=== PATIENT | male | born 1940 | race Two or more races ===

== ENCOUNTER 2018-06-23 17:18 | Emergency (ER) | payer MEDICARE ==
[~2018-06-23] VITALS: Ht 175.3 cm; Wt 102.1 kg
[2018-06-23 17:30] VITALS: BP 156/82
[2018-06-23] MEDS ORDERED: Meclizine 25mg tab ORAL ONE (17:45)
[2018-06-23] MEDS ORDERED: Metoclopramide 10mg/2ml Inj IVP ONE (17:45)
[2018-06-23 18:00] VITALS: BP 140/83
[2018-06-23 18:08] LABS: BASOPHILS % (AUTO) 1.7 % (0.0-2.0); HEMATOCRIT 45.3 % (42.0-52.0); HEMOGLOBIN 15.5 G/DL (14.2-18.0); LYMPHOCYTES % (AUTO) 41.8 % (20.0-45.0); MEAN CORPUSCULAR VOLUME 88 FL (80-99); MONOCYTES % (AUTO) 7.4 % (1.0-10.0); NEUTROPHILS % (AUTO) 43.3 % (45.0-75.0); PLATELET COUNT 164 K/UL (150-450); RED BLOOD COUNT 5.17 M/UL (4.70-6.10); RED CELL DISTRIBUTION WIDTH 11.6 % (11.6-14.8); WHITE BLOOD COUNT 9.2 K/UL (4.8-10.8)
--- NOTE | 2018-06-23 18:12 | Emergency Room Report ---
History of Present Illness General Chief Complaint: Vomiting Source: Patient, EMS Present Illness HPI Patient is a 78-year-old male brought in by EMS after acute onset of dizziness. Patient was noted to have acute onset of vertigo sensation associated with nausea and vomiting. Patient was noted to have multiple episodes of vomiting. This had sudden onset approximately 45 minutes prior to arrival. Patient had had a prior history of vertigo. He had prior history of hypertension.The patient noted have prior history of atrial fibrillation and been taking Elliquis 5 mg. The patient brought in by EMS. He had been given Zofran IV Allergies: Coded Allergies: PENICILLINS (Verified Allergy, Unknown, 06/23/18) Patient History Reviewed Nursing Documentation: PMH: Agreed; PSxH: Agreed Nursing Documentation-PMH Past Medical History: No History, Except For Hx Hypertension: Yes Review of Systems All Other Systems: limited Physical Exam Vital Signs Date Time Temp Pulse Resp B/P (MAP) Pulse Ox O2 Delivery O2 Flow Rate FiO2 06/23/18 17:17 97.5 78 19 178/96 99 Room Air 97.5 Sp02 EP Interpretation: reviewed, normal General Appearance: normal inspection, well appearing, no apparent distress, alert, GCS 15, non-toxic Head: atraumatic ENT: normal ENT inspection, hearing grossly normal, normal voice Neck: normal inspection, full range of motion, supple, no bony tend Respiratory: normal inspection, lungs clear, normal breath sounds, no respiratory distress, no retraction, no wheezing Cardiovascular #1: regular rate, rhythm, no edema Gastrointestinal: normal inspection, normal bowel sounds, non tender, soft, no guarding, no hernia Genitourinary: no CVA tenderness Musculoskeletal: normal inspection, back normal, normal range of motion Neurologic: normal inspection, alert, oriented x3, responsive, speech normal, other - roving eye movemetn disconjugate gaze pupils 2mm reactive Psychiatric: normal inspection, judgement/insight normal, mood/affect normal Skin: normal inspection, normal color, no rash Medical Decision Making Diagnostic Impression: Primary Impression: Cerebellar hemorrhage, nontraumatic ER Course Patient presented for acute onset of dizziness. Differential diagnosis included was not limited to subarachnoid hemorrhage, cerebellar stroke, benign positional vertigo among others.Because of complexity of patient's case laboratory testing and imaging studies were ordered. The patient was noted to have a acute onset of severe vertigo. The patient noted have a markedly abnormal eye movements. Patient was given IV Zofran by EMS and was given IV Reglan while in the emergency department. CT the head read by radiologist showed 2.8 x 2 cm cerebellar parenchymal hemorrhage with small mass effect on the fourth ventricle without evidence hydrocephalus.The patient given IV Decadron as well as loaded with IV Keppra. The [facility] was contacted for possible transfer. The patient was discussed with at [facility] for a transfer for higher level of care. The reversal agent for Elliquis was unavailable. The patient be transferred [facility] for higher level of care via 911 Labs Test 06/23/18 17:34 White Blood Count 9.2 K/UL (4.8-10.8) Red Blood Count 5.17 M/UL (4.70-6.10) Hemoglobin 15.5 G/DL (14.2-18.0) Hematocrit 45.3 % (42.0-52.0) Mean Corpuscular Volume 88 FL (80-99) Mean Corpuscular Hemoglobin 30.0 PG (27.0-31.0) Mean Corpuscular Hemoglobin Concent 34.2 G/DL (32.0-36.0) Red Cell Distribution Width 11.6 % (11.6-14.8) Platelet Count 164 K/UL (150-450) Mean Platelet Volume 8.7 FL (6.5-10.1) Neutrophils (%) (Auto) 43.3 % (45.0-75.0) Lymphocytes (%) (Auto) 41.8 % (20.0-45.0) Monocytes (%) (Auto) 7.4 % (1.0-10.0) Eosinophils (%) (Auto) 6.0 % (0.0-3.0) Basophils (%) (Auto) 1.7 % (0.0-2.0) Last Vital Signs Date Time Temp Pulse Resp B/P (MAP) Pulse Ox O2 Delivery O2 Flow Rate FiO2 06/23/18 17:30 63 16 156/82 97 Room Air 06/23/18 17:17 97.5 97.5 Status: unchanged Disposition: XFER SHT-TRM HOSP Condition: Critical Alden Veras MD Jun 23, 2018 18:12
[2018-06-23] MEDS ORDERED: Dexamethasone 4mg/ml vial IVP ONE (18:15)
[2018-06-23] MEDS ORDERED: levETIRAcetam 1,000mg/NS100ml 100 ML IVPB ONE (18:15)
--- NOTE | 2018-06-23 18:19 | Diagnostic Imaging Report ---
Indication: Headache and dizziness Technique: Contiguous 5 mm thick transaxial imaging of the head obtained in a Siemens Sensation [address] scanner. Soft tissue and bone windows generated. Automatic Exposure Control was utilized. Total Dose length Product (DLP): [address] Dose Index Volume (CTDIvol): 0.15, 70.38 mGy Comparison: none Findings: There is a round, hyperdense acute hematoma demonstrated within the cerebellar vermis slightly left of midline measuring 2.8 x 1.9 x 2.5 cm. Very small amount of surrounding adjacent low attenuation edema noted. Mild compression of the fourth ventricle demonstrated. Basal cisterns appear normal. There is no evidence of hydrocephalus with normal caliber lateral ventricles and third ventricle. There is generalized atrophy of the cerebrum and cerebellum, mild to in degree. Nonspecific periventricular low-attenuation noted likely chronic small vessel disease given patient's age. Osseous structures appear unremarkable. Paranasal sinuses are clear as visualized. IMPRESSION: 2.8 x 1.9 x 2.5 cm acute hematoma in the area of the cerebellar vermis. Mild surrounding edema. Mild mass effect on the fourth ventricle. Mild generalized atrophy of the brain. Periventricular low attenuation consistent with chronic small vessel disease Critical value communication. Findings were discussed via telephone with Dr. Alden Veras in the emergency department 6:10 PM, 06/23/2018. The CT scanner at [facility] is accredited by the [employer] and the scans are performed using dose optimization techniques as appropriate to a performed exam including Automatic Exposure control.
[2018-06-23 18:20] LABS: ANION GAP 9 mmol/L (5-15); BLOOD UREA NITROGEN 15 mg/dL (7-18); CALCIUM 10.1 MG/DL (8.5-10.1); CARBON DIOXIDE 24 MMOL/L (21-32); CHLORIDE 108 MMOL/L (98-107); POTASSIUM 4.5 MMOL/L (3.5-5.1); SODIUM 141 MMOL/L (136-145)
[2018-06-23 18:25] LABS: ALANINE AMINOTRANSFERASE 26 U/L (12-78); ALBUMIN 3.9 G/DL (3.4-5.0); ALBUMIN/GLOBULIN RATIO 1.1 (1.0-2.7); ALKALINE PHOSPHATASE 112 U/L (46-116); ASPARTATE AMINO TRANSFERASE 29 U/L (15-37); BILIRUBIN,TOTAL 0.4 MG/DL (0.2-1.0)
[2018-06-23 18:47] VITALS: BP 140/83
[2018-06-23 19:00] VITALS: BP 146/97
== END 2018-06-23 19:00 | disposition short-term general hospital (02) ==
LOC: EDBD 17:18 → EMR 18:26
DX: I61.4 Nontraumatic intracerebral hemorrhage in cerebellum (principal); I10 Essential (primary) hypertension
CPT/HCPCS: 36415; 70450; 80053; 82962; 84484; 85025; 85610; 85651; 85730; 96374; 96375; 99285; J0360; J1100; J1953; J2765

== ENCOUNTER 2020-07-17 20:34 | Emergency (ER) | payer MEDICARE, MEDICAID ==
[~2020-07-17] VITALS: Ht 175.3 cm; Wt 86.2 kg
--- NOTE | 2020-07-17 20:40 | NUR ---
ED Nurse Note: Patient walked into the ED from home accompanied by son due to mechanial fall at home. Patient lost balance while walking in the backyard using a cane causing him to fall forward hitting his head on a concrete. Laceration noted on right eyebrow area. Minimal bleeding noted at as pressure was applied by son. Patient is on blood thinner (aspirin). Patient denies LOC, N&V, changes in GCS, CP/SOB/. Patient is AAOX4 and was placed on monitor bed
--- NOTE | 2020-07-17 20:41 | NUR ---
ED Nurse Note: ERMD at bedside
--- NOTE | 2020-07-17 20:45 | NUR ---
ED Nurse Note: Blood sent to lab
[2020-07-17] MEDS ORDERED: Lidocaine 2% MPF 5ml Vial INJ ONE (21:15)
--- NOTE | 2020-07-17 21:15 | NUR ---
ED Nurse Note: CT scan done
--- NOTE | 2020-07-17 21:19 | Emergency Room Report ---
History of Present Illness General Chief Complaint: Multiple Trauma/Fall Source: Patient Present Illness HPI This patient is accompanied by his son. The patient was out in the yard and was bent over and lost his balance and fell onto his face suffering a laceration on his right forehead. He normally uses a walker and is unstable. He has a history of recurrent falls. He also has had intracranial bleeding after being on anticoagulation medications for A. fib. He is no longer on any anticoagulation. He is on a 325 mg aspirin daily. The patient has had no recent illness. The patient did not have any loss of consciousness. There are no other complaints. Allergies: Coded Allergies: No Known Allergies (Unverified , 07/17/20) COVID-19 Screening Contact w/high risk pt: No Experienced COVID-19 symptoms?: No COVID-19 Testing performed MANAGER ERP: No Patient History Past Medical History: see triage record, HTN, CO, CAD, CHF, AFib Past Surgical History: CABG Social History: Denies: smoking, alcohol use, drug use Reviewed Nursing Documentation: PMH: Agreed; PSxH: Agreed Nursing Documentation-PMH Past Medical History: No History, Except For Hx Hypertension: Yes Review of Systems All Other Systems: negative except mentioned in HPI Physical Exam Vital Signs Date Time Temp Pulse Resp B/P (MAP) Pulse Ox O2 Delivery O2 Flow Rate FiO2 07/17/20 20:37 98.2 60 16 136/74 (94) 95 Room Air Sp02 EP Interpretation: reviewed, normal General Appearance: no apparent distress, alert, GCS 15, non-toxic Head: normocephalic, other - 2cm laceration over the L. eyebrow and forehead. Abrasion over the L. face. Eyes: bilateral eye normal inspection, bilateral eye PERRL ENT: hearing grossly normal, normal pharynx, no angioedema, normal voice Neck: normal inspection, full range of motion Respiratory: chest non-tender, lungs clear, normal breath sounds, no respiratory distress, no retraction, no accessory muscle use, speaking full sentences Cardiovascular #1: regular rate, rhythm, no edema Gastrointestinal: normal bowel sounds, non tender, soft, non-distended, no guarding, no rebound Rectal: deferred Musculoskeletal: back normal, normal range of motion, non-tender Neurologic: alert, motor strength/tone normal, oriented x3, sensory intact, responsive, speech normal Psychiatric: mood/affect normal, no suicidal/homicidal ideation Skin: other - See above in head exam Procedures Laceration/Wound Repair Laceration/Wound Repair : Consent: Verbal Wound Location: face Wound's Depth, Shape: superficial Wound Length (cm): 2 Wound Explored: clean Irrigated w/ Saline (ccs): 1000 Anesthesia: 1% Lidocaine Volume Anesthetic (ccs): 5 Wound Repaired With: sutures Suture Size/Type: 4:0, proline Number of Sutures: 3 Patient Tolerated: Well Complications: None Medical Decision Making Diagnostic Impression: Primary Impression: INOCENTE (acute kidney injury) Additional Impressions: Forehead laceration Fall ER Course This patient is found to have acute renal failure. The patient was also bradycardic with a heart rate of 57 and a first-degree AV block. This could be related to the blocking medications that he is on. I am concerned that in the setting of acute renal failure the patient could be over blocked and this could cause profound bradycardia. The patient CT of his head and C-spine were negative for acute bleed. The patient is on aspirin but not on any other anticoagulation. Patient's laceration was repaired. Further discussion with the patient's daughter and she was concerned that he had never had a history of any renal disease. He is admitted for further evaluation of his acute renal failure and for monitoring of his bradycardia. Laboratory Tests Test 07/17/20 21:10 White Blood Count 11.1 K/UL (4.8-10.8) H Red Blood Count 4.04 M/UL (4.70-6.10) L Hemoglobin 11.8 G/DL (14.2-18.0) L Hematocrit 36.1 % (42.0-52.0) L Mean Corpuscular Volume 89 FL (80-99) Mean Corpuscular Hemoglobin 29.1 PG (27.0-31.0) Mean Corpuscular Hemoglobin Concent 32.6 G/DL (32.0-36.0) Red Cell Distribution Width 13.8 % (11.6-14.8) Platelet Count 212 K/UL (150-450) Mean Platelet Volume 9.4 FL (6.5-10.1) Neutrophils (%) (Auto) 58.6 % (45.0-75.0) Lymphocytes (%) (Auto) 22.9 % (20.0-45.0) Monocytes (%) (Auto) 10.1 % (1.0-10.0) H Eosinophils (%) (Auto) 7.1 % (0.0-3.0) H Basophils (%) (Auto) 1.4 % (0.0-2.0) Prothrombin Time 10.9 SEC (9.30-11.50) Prothrombin Time INR 1.0 (0.9-1.1) Activated Partial Thromboplast Time 23 SEC (23-33) Sodium Level 140 MMOL/L (136-145) Potassium Level 4.1 MMOL/L (3.5-5.1) Chloride Level 105 MMOL/L (98-107) Carbon Dioxide Level 28 MMOL/L (21-32) Anion Gap 7 mmol/L (5-15) Blood Urea Nitrogen 21 mg/dL (7-18) H Creatinine 2.2 MG/DL (0.55-1.30) H Estimated Glomerular Filtration Rate 29.1 mL/min (>60) Glucose Level 116 MG/DL (74-106) H Calcium Level 9.8 MG/DL (8.5-10.1) Total Bilirubin 0.3 MG/DL (0.2-1.0) Aspartate Amino Transferase (AST) 17 U/L (15-37) Alanine Aminotransferase (ALT) 22 U/L (12-78) Alkaline Phosphatase 146 U/L (46-116) H Total Protein 7.4 G/DL (6.4-8.2) Albumin 3.6 G/DL (3.4-5.0) Globulin 3.8 g/dL Albumin/Globulin Ratio 0.9 (1.0-2.7) L EKG Diagnostic Results Rate: bradycardiac Rhythm: other - S.paco with 1st degree AV block ST Segments: no acute changes Rhythm Strip Diag. Results EP Interpretation: yes Rate: 50's Rhythm: no PVC's, no ectopy, other - S.bradycardia CT/MRI/US Diagnostic Results CT/MRI/US Diagnostic Results : Imaging Test Ordered: CT head, CT C-spine Impression CT head: No acute findings. Specifically no intracranial bleed, mass effect or edema. See official report. CT C-spine: No acute findings. See official report in electronic medical record. Last Vital Signs Date Time Temp Pulse Resp B/P (MAP) Pulse Ox O2 Delivery O2 Flow Rate FiO2 11/3/20 20:37 98.2 60 16 136/74 (94) 95 Room Air Disposition: ADMITTED INPATIENT Condition: Serious Referrals: NOT CHOSEN IPA/,REFERRING (PCP) Monik Puente DO Jul 17, 2020 21:19
--- NOTE | 2020-07-17 21:20 | NUR ---
ED Nurse Note: ERMD at bedside
[2020-07-17 21:25] LABS: BASOPHILS % (AUTO) 1.4 % (0.0-2.0); EOSINOPHILS % (AUTO) 7.1 % (0.0-3.0); HEMATOCRIT 36.1 % (42.0-52.0); HEMOGLOBIN 11.8 G/DL (14.2-18.0); LYMPHOCYTES % (AUTO) 22.9 % (20.0-45.0); MEAN CORPUSCULAR VOLUME 89 FL (80-99); MONOCYTES % (AUTO) 10.1 % (1.0-10.0); NEUTROPHILS % (AUTO) 58.6 % (45.0-75.0); PLATELET COUNT 212 K/UL (150-450); RED BLOOD COUNT 4.04 M/UL (4.70-6.10); RED CELL DISTRIBUTION WIDTH 13.8 % (11.6-14.8); WHITE BLOOD COUNT 11.1 K/UL (4.8-10.8)
[2020-07-17 21:27] LABS: CALCIUM 9.8 MG/DL (8.5-10.1); CREATININE 2.2 MG/DL (0.55-1.30); POTASSIUM 4.1 MMOL/L (3.5-5.1)
--- NOTE | 2020-07-17 21:30 | NUR ---
ED Nurse Note: Blood and rapid covid test sent to lab
--- NOTE | 2020-07-17 21:31 | Diagnostic Imaging Report ---
EXAM: CT Head Without Intravenous Contrast CLINICAL HISTORY: TRAUMA TECHNIQUE: Axial computed tomography images of the head/brain without intravenous contrast. CTDI is 53.4 mGy and DLP is 1018.8 mGy-cm. One or more of the following dose reduction techniques were used: automated exposure control, adjustment of the mA and/or kV according to patient size, use of iterative reconstruction technique. COMPARISON: CT head dated 06/23/2018 FINDINGS: Brain: Mild encephalomalacia of the left temporal lobe. Mild periventricular and white matter hypodensities. No hemorrhage. Ventricles: Unremarkable for age. No ventriculomegaly. Bones/joints: Unremarkable. No acute fracture. Soft tissues: Right frontal and right periorbital superficial soft tissue hematoma and subcutaneous emphysema. Sinuses: Minimal mucosal thickening of the right maxillary sinus. Mastoid air cells: Unremarkable as visualized. No mastoid effusion. IMPRESSION: 1. No acute intracranial abnormality. 2. Right frontal and periorbital superficial hematoma and soft tissue swelling. 3. Mild right maxillary sinus disease. 4. 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
[2020-07-17 21:32] LABS: ALBUMIN 3.6 G/DL (3.4-5.0); ALBUMIN/GLOBULIN RATIO 0.9 (1.0-2.7); BILIRUBIN,TOTAL 0.3 MG/DL (0.2-1.0)
--- NOTE | 2020-07-17 21:38 | Diagnostic Imaging Report ---
EXAM: CT Cervical Spine Without Intravenous Contrast CLINICAL HISTORY: TRAUMA TECHNIQUE: Axial computed tomography images of the cervical spine without intravenous contrast. CTDI is 20.2 mGy and DLP is 544.6 mGy-cm. One or more of the following dose reduction techniques were used: automated exposure control, adjustment of the mA and/or kV according to patient size, use of iterative reconstruction technique. COMPARISON: No relevant prior studies available. FINDINGS: Vertebrae: Multilevel spondylosis is demonstrated, most prominent at C5-C6 greater than C6-C7 with small posterior disc osteophyte complexes. There is no severe canal narrowing. No acute fracture. Discs/spinal canal/neural foramina: Diffuse mild bilateral facet hypertrophy as well as uncovertebral joint hypertrophy is noted. Soft tissues: Unremarkable. Vasculature: Mild atherosclerotic vascular disease. IMPRESSION: No acute findings in the cervical spine.
[2020-07-17 21:47] VITALS: BP 136/74
--- NOTE | 2020-07-17 21:53 | NUR ---
ED Nurse Note: ERMD at bedside for suturing
--- NOTE | 2020-07-17 22:15 | NUR ---
ED Nurse Note: Patient doesnt want to be admitted as he wants to talk to his PCP first as he have a scheduled appointment celeste . Explained to the patient the need to be admiited and the risk and consquences of leaving AMA. JAVAN notified.
--- NOTE | 2020-07-17 22:15 | NUR ---
ED Nurse Note: Patient doesnt want to be admitted. 9fa
--- NOTE | 2020-07-17 22:43 | NUR ---
AMA: SEE AMA FORM. Pts son signed AMA. Explained to the family the risk and consequence of doing AMA. pt id band and iv site removed without complications. pt is able to ambulate with cane accompanied by son. pt took all belongings.
[2020-07-17 22:46] VITALS: BP 136/74
--- NOTE | 2020-07-18 15:02 | Cardiology Report ---
APPROVED REPORT EKG Measurement Heart [id number] <Conclusion> Sinus bradycardia with 1st degree AV block Left axis deviation Low voltage QRS Possible Anterolateral infarct, age undetermined Abnormal ECG
== END 2020-07-17 22:47 | disposition left against medical advice (07) ==
LOC: EMR 21:00 → CANBEDREQ 22:26 → EMR 22:47
DX: S01.81XA Laceration without foreign body of other part of head, initial encounter (principal); S01.112A Laceration without foreign body of left eyelid and periocular area, initial encounter; N17.9 Acute kidney failure, unspecified; W19.XXXA Unspecified fall, initial encounter; Y92.9 Unspecified place or not applicable; I25.2 Old myocardial infarction; I11.0 Hypertensive heart disease with heart failure; I50.9 Heart failure, unspecified; I25.10 Atherosclerotic heart disease of native coronary artery without angina pectoris; Z95.1 Presence of aortocoronary bypass graft; Z79.82 Long term (current) use of aspirin; Z91.81 History of falling; I44.0 Atrioventricular block, first degree; R00.1 Bradycardia, unspecified; J32.0 Chronic maxillary sinusitis
CPT/HCPCS: 36415; 70450; 72125; 80053; 85025; 85610; 85730; 93005; 99284